=== PATIENT | male | born 1980 | race Caucasian/White ===

== ENCOUNTER → 2017-08-11 | Outpatient (CLI) | payer MEDICAID | LOC: CARD 10:40 | PROVIDERS: ATTEND Family Medicine | DX: G56.00 Carpal tunnel syndrome, unspecified upper limb (principal) | CPT/HCPCS: 95885; 95908 ==

== ENCOUNTER 2018-10-07 01:43 | Emergency (ER) | payer MEDICAID, OTHER ==
[~2018-10-07] VITALS: Ht 182.9 cm; Wt 96.8 kg
[2018-10-07 01:49] VITALS: BP 159/97
[2018-10-07] MEDS ORDERED: HYDROcodone/APAP 5/325 TABLET ONE ×2 (02:10→03:32)
[2018-10-07] MEDS ORDERED: DIAZEPAM 5 MG TABLET ONE (02:10)
[2018-10-07] MEDS ORDERED: DIAZEPAM 5 MG TABLET PO ONE (02:30)
[2018-10-07] MEDS ORDERED: HYDROcodone/APAP 5/325 TABLET PO ONE ×2 (02:30→03:30)
--- NOTE | 2018-10-07 03:10 | NUR ---
PT STATES FEELING MUCH BETTER AFTER MEDICATION. STATES CAN COME PICK HIM UP TO GO HOME IF NEED BE.
[2018-10-07] MEDS ORDERED: METHOCARBAMOL 750 MG TABLET PO ONE (03:30)
[2018-10-07] MEDS ORDERED: METHOCARBAMOL 750 MG TABLET ONE ×2 (03:31→03:32)
--- NOTE | 2018-10-07 03:44 | NUR ---
ATTEMPTED TO AMBULATE PT. PT COULD NOT SUPPORT OWN WEIGHT AND STATES INCREASING MUSCULAR SPASMS IN LOWER BACK. MD AWARE. PT FURTHER MEDICATED AND GIVEN ICE PACKS.
[2018-10-07] MEDS ORDERED: LIDODERM 5% PATCH TD ONE ×2 (04:09→04:30)
== END 2018-10-07 04:59 | disposition home or self-care (01) ==
LOC: ED 02:57
DX: S39.012A Strain of muscle, fascia and tendon of lower back, initial encounter (principal); M62.830 Muscle spasm of back; G89.11 Acute pain due to trauma; X50.0XXA Overexertion from strenuous movement or load, initial encounter; Y93.89 Activity, other specified; Y92.69 Other specified industrial and construction area as the place of occurrence of the external cause; Y99.0 Civilian activity done for income or pay
CPT/HCPCS: 99284